=== PATIENT | female | born 1985 | race Caucasian/White ===

== ENCOUNTER → 2016-12-25 | Outpatient (REF) | payer MEDICAID, OTHER ==
[~2016-12-25] MED LIST: /MOM400 GT; ACET50TA PO; ANUS2.5C2 EXT; COLA100C PO; IBUP60TA PO; IBUP80TA PO; PRENTAB31 PO; TYLE325T5 PO; VITAPRTA PO
== END ==
LOC: M LAB REF 16:49
PROVIDERS: ATTEND Family Medicine
DX: Z12.4 Encounter for screening for malignant neoplasm of cervix (principal)

== ENCOUNTER → 2016-12-29 | Outpatient (CLI) | payer OTHER ==
[~2016-12-29] MED LIST changes: -COLA100C PO; +COLA100C3 PO
[2016-12-29 07:53] LABS: BASO % 0.6 % (0.0-1.0); EOS # 0.2 K/mm3 (0.0-0.50); EOS % 2.8 % (0.0-3.0); LYMPH # 1.6 K/mm3 (1.5-4.5); LYMPH % 25.2 % (24.0-44.0); MEAN CORPUSCULAR HEMOGLOBIN 29.8 pg (27.0-33.0); MEAN CORPUSCULAR HGB CONC 33.8 g/dl (32.0-36.5); MEAN CORPUSCULAR VOLUME 88.1 fl (80.0-96.0); MONO # 0.3 K/mm3 (0.0-0.8); MONO % 5.8 % (0.0-5.0); NEUTROPHILS # 3.7 K/mm3 (1.8-7.7); NEUTROPHILS % 63.9 % (36.0-66.0); RED CELL DISTRIBUTION WIDTH 12.8 % (11.5-14.5); WHITE BLOOD COUNT 5.8 K/mm3 (4.0-10.0)
[2016-12-29 08:01] LABS: ANION GAP 7 MEQ/L (8-16); BLOOD UREA NITROGEN 11 MG/DL (7-18); CALCIUM LEVEL 8.4 MG/DL (8.5-10.1); CARBON DIOXIDE LEVEL 26 MEQ/L (21-32); CHLORIDE LEVEL 108 MEQ/L (98-107); CHOLESTEROL LEVEL 131 MG/DL (<200); CREATININE FOR GFR 0.75 MG/DL (0.55-1.02); GLOMERULAR FILTRATION RATE > 60.0 (>60); GLUCOSE, FASTING 84 MG/DL (70-105); POTASSIUM SERUM 4.1 MEQ/L (3.5-5.1); SODIUM LEVEL 141 MEQ/L (136-145); TRIGLYCERIDES LEVEL 67 MG/DL (<150)
== END ==
LOC: M LAB 06:24
PROVIDERS: ATTEND Family Medicine
DX: N72 Inflammatory disease of cervix uteri (principal); Z00.00 Encounter for general adult medical examination without abnormal findings

== ENCOUNTER → 2018-06-06 | Outpatient (REF) | payer OTHER | LOC: M LAB REF 18:00 | DX: N94.3 Premenstrual tension syndrome (principal) | CPT/HCPCS: 84443 ==

== ENCOUNTER → 2020-08-02 | Outpatient (CLI) | payer SELFPAY ==
[~2020-08-02] MED LIST changes: -/MOM400 GT; -ACET50TA PO; -COLA100C3 PO; +COLA100C5 PO; +IBUP600T42 PO; -IBUP60TA PO; +MAPA500T17 PO; +MILK10SU GT
== END ==
LOC: M LABSMTC 12:50
PROVIDERS: ATTEND Pediatrics
DX: Z20.828 Contact with and (suspected) exposure to other viral communicable diseases (principal)

== ENCOUNTER 2020-08-18 11:19 | Emergency (ER) | payer OTHER, SELFPAY ==
[~2020-08-18] VITALS: Ht 160 cm; Wt 62.5 kg
[2020-08-18 11:20] VITALS: BP 138/77
[2020-08-18] MEDS ORDERED: ZYRTTAB8 PO (11:25)
[2020-08-18] MEDS ORDERED: TIZA4CAP6 PO (11:25)
[2020-08-18] MEDS ORDERED: CYCL-707 PO (11:59)
[2020-08-18] MEDS ORDERED: KETO10TAB PO (11:59)
[2020-08-19] MEDS ORDERED: FISH1000 PO (15:34)
== END 2020-08-18 12:16 | disposition home or self-care (01) ==
LOC: M ED 11:19
DX: S16.1XXA Strain of muscle, fascia and tendon at neck level, initial encounter (principal); X58.XXXA Exposure to other specified factors, initial encounter; Y92.89 Other specified places as the place of occurrence of the external cause; M43.6 Torticollis; M54.12 Radiculopathy, cervical region

== ENCOUNTER 2020-08-19 15:28 | Emergency (ER) | payer OTHER ==
[~2020-08-19] VITALS: Ht 160 cm; Wt 62.8 kg
[2020-08-19 15:28] VITALS: BP 136/79
[~2020-08-19 15:28] MED LIST changes: +CYCL-707 PO; +KETO10TAB PO; +TIZA4CAP6 PO; +ZYRTTAB8 PO
[2020-08-19] MEDS ORDERED: FISH1000 PO (15:34)
[2020-08-19] MEDS ORDERED: LIDOCAINE 1% MDV 20ML VIAL IM ONE (15:45)
[2020-08-19] MEDS ORDERED: KETOROLAC 60MG 2ML VIAL IM ONE (15:45)
== END 2020-08-19 16:09 | disposition home or self-care (01) ==
LOC: M ED 15:28
DX: S16.1XXA Strain of muscle, fascia and tendon at neck level, initial encounter (principal); X58.XXXA Exposure to other specified factors, initial encounter; Y92.89 Other specified places as the place of occurrence of the external cause; Z79.899 Other long term (current) drug therapy
CPT/HCPCS: 20552; 99282; J1885

== ENCOUNTER → 2020-09-19 | Outpatient (CLI) | payer OTHER ==
[~2020-09-19] MED LIST changes: +FISH1000 PO
[2020-09-19 14:23] LABS: BASO # 0.1 10^3/uL (0.0-0.2); BASO % 0.8 % (0.0-1.0); EOS # 0.1 10^3/uL (0.0-0.5); EOS % 1.3 % (0.0-3.0); HEMATOCRIT 40.4 % (36.0-47.0); HEMOGLOBIN 13.2 g/dl (12.0-15.5); LYMPH % 32.9 % (24.0-44.0); MEAN CORPUSCULAR HEMOGLOBIN 28.7 pg (27.0-33.0); MEAN CORPUSCULAR HGB CONC 32.7 g/dl (32.0-36.5); MEAN CORPUSCULAR VOLUME 87.8 fl (80.0-96.0); MONO # 0.7 10^3/uL (0.0-0.8); MONO % 10.6 % (0.0-5.0); NEUTROPHILS # 3.3 10^3/uL (1.5-8.5); NEUTROPHILS % 54.2 % (36.0-66.0); PLATELET COUNT, AUTOMATED 213 10^3/uL (150-450); WHITE BLOOD COUNT 6.1 10^3/uL (4.0-10.0)
[2020-09-19 15:00] LABS: BLOOD UREA NITROGEN 19 MG/DL (7-18); CARBON DIOXIDE LEVEL 28 MEQ/L (21-32); CHLORIDE LEVEL 107 MEQ/L (98-107); CHOLESTEROL LEVEL 176 MG/DL (<200); GLOMERULAR FILTRATION RATE > 60.0 (>60); GLUCOSE, FASTING 91 MG/DL (70-100); HDL CHOLESTEROL 64 MG/DL (>40); LDL CHOLESTEROL 98 MG/DL (<100); NON-HDL-C 112 MG/DL; POTASSIUM SERUM 4.2 MEQ/L (3.5-5.1); SODIUM LEVEL 141 MEQ/L (136-145); THYROID STIMULATING HORMONE 0.769 uIU/ML (0.358-3.740); TRIGLYCERIDES LEVEL 71 MG/DL (<150)
== END ==
LOC: M LAB 14:03
PROVIDERS: ATTEND Family Medicine
DX: N93.8 Other specified abnormal uterine and vaginal bleeding (principal); N94.3 Premenstrual tension syndrome

== ENCOUNTER → 2021-06-19 | Outpatient (REF) | LOC: M EMP 16:00 | PROVIDERS: ATTEND Family Medicine | DX: Z11.52 Encounter for screening for COVID-19 (principal) ==

== ENCOUNTER → 2021-09-29 | Outpatient (REF) ==
[2021-09-29 12:36] LABS: RSV AMPLIFICATION NEGATIVE (NEGATIVE)
== END ==
LOC: M LABSMTC 10:00
PROVIDERS: ATTEND Family Medicine
DX: Z11.52 Encounter for screening for COVID-19 (principal); Z20.822 Contact with and (suspected) exposure to COVID-19

== ENCOUNTER → 2021-09-30 | Outpatient (REF) | LOC: M EMP 09:13 | PROVIDERS: ATTEND Family Medicine | DX: Z20.822 Contact with and (suspected) exposure to COVID-19 (principal) ==

== ENCOUNTER 2023-03-09 11:43 | Emergency (ER) | payer OTHER ==
[~2023-03-09] VITALS: Ht 160 cm; Wt 69.1 kg
[2023-03-09 11:44] VITALS: BP 136/76; TEMP 98.4; O2SAT 100
[2023-03-09] MEDS ORDERED: IBUP-1022 PO (11:50)
== END 2023-03-09 15:30 | disposition left against medical advice (07) ==
LOC: M ED 11:43
DX: Z53.21 Procedure and treatment not carried out due to patient leaving prior to being seen by health care provider (principal)

== ENCOUNTER → 2023-08-23 | Outpatient (REF) ==
[~2023-08-23] MED LIST changes: +IBUP-1022 PO
== END ==
LOC: M EMP 08:23
PROVIDERS: ATTEND Family Medicine
DX: Z11.52 Encounter for screening for COVID-19 (principal)

== ENCOUNTER → 2024-05-30 | Outpatient (REF) ==
[~2024-05-30] MED LIST changes: +TIZA4CAP3 PO; -TIZA4CAP6 PO
== END ==
LOC: M EMP 09:27
PROVIDERS: ATTEND Family Medicine
DX: Z11.52 Encounter for screening for COVID-19 (principal)

== ENCOUNTER → 2024-10-05 | Outpatient (CLI) | payer OTHER | LOC: M WUC 10:24 | PROVIDERS: ATTEND Nurse Practitioner Family | DX: M79.662 Pain in left lower leg (principal) ==